=== PATIENT | female | born 1980 | race Caucasian/White ===

== ENCOUNTER 2018-02-21 17:30 | Emergency (ER) | payer OTHER, SELFPAY ==
[~2018-02-21] VITALS: Ht 170.2 cm; Wt 104.3 kg
[2018-02-21 17:48] VITALS: BP 157/96
[2018-02-21 19:11] LABS: ALBUMIN 3.4 g/dL (3.4-5.0); ANION GAP 8 mmol/L (5-15); CALCIUM 9.2 mg/dL (8.5-10.1); CHLORIDE 111 mmol/L (98-107)
[2018-02-21 19:16] LABS: BASOPHILS # (AUTO) 0.04 x10^3/uL (0-0.1); BASOPHILS % (AUTO) 0 % (0-1); EOSINOPHILS # (AUTO) 0.35 x10^3/uL (0-0.4); EOSINOPHILS % (AUTO) 3 % (1-7); LYMPHOCYTES # (AUTO) 3.08 x10^3/uL (1-3.4); LYMPHOCYTES % (AUTO) 24 % (22-44); MD NO; MEAN CORPUSCULAR HEMOGLOBIN 31.2 pg (27.0-34.8); MEAN CORPUSCULAR HGB CONC 33.9 g/dL (32.4-35.8); MEAN PLATELET VOLUME 7.8 fL (7.4-10.4); MONOCYTES # (AUTO) 1.06 x10^3/uL (0.2-0.8); MONOCYTES % (AUTO) 8 % (2-9); NEUTROPHILS % (AUTO) 65 % (42-75); PLATELET COUNT 406 x10^3/uL (130-400); RED BLOOD COUNT 4.46 x10^6/uL (3.82-5.3); RED CELL DISTRIBUTION WIDTH 13.6 % (9.6-15.2)
[2018-02-21 19:29] LABS: ALANINE AMINOTRANSFERASE 29 U/L (12-78); ALKALINE PHOSPHATASE 68 U/L (45-117); BILIRUBIN,TOTAL 0.4 mg/dL (0.2-1.0); CREATININE 0.82 mg/dL (0.55-1.02); TOTAL PROTEIN 7.2 g/dL (6.4-8.2)
[2018-02-21 21:09] LABS: MICROSCOPIC INDICATED
[2018-02-21 21:23] LABS: CULTURE INDICATED? NO
== END 2018-02-21 21:35 | disposition home or self-care (01) ==
LOC: ED 20:18
DX: O20.0 Threatened abortion (principal); Z3A.09 9 weeks gestation of pregnancy
CPT/HCPCS: 36415; 76801; 80053; 81001; 84702; 85025; 86880; 86901; 99285

== ENCOUNTER 2018-09-13 17:08 | Inpatient (IN) | payer OTHER ==
[~2018-09-13] VITALS: Ht 170.2 cm; Wt 116.0 kg
[2018-09-13] MEDS ORDERED: OXYTOCIN 30U/ 0.9% NaCL 500ML 500 ML IV SCH (17:25)
[2018-09-13] MEDS ORDERED: LACTATED RINGERS 1,000 ML IV SCH ×2 (17:25→20:30)
[2018-09-13] MEDS ORDERED: LACTATED RINGERS 1,000 ML IVBOLUS ONE (17:30)
[2018-09-13] MEDS ORDERED: SODIUM CITRATE/CITRIC ACID 30 ML UDC PO ONE (17:30)
[2018-09-13] MEDS ORDERED: METOCLOPRAMIDE 5 MG/ML, 2ML IV ONE (17:30)
[2018-09-13] MEDS ORDERED: CALCIUM CARBONATE 500 MG TAB.CHEW PO PRN (17:30)
[2018-09-13 18:03] LABS: BASOPHILS # (AUTO) 0.02 x10^3/uL (0-0.1); BASOPHILS % (AUTO) 0 % (0-1); EOSINOPHILS # (AUTO) 0.09 x10^3/uL (0-0.4); EOSINOPHILS % (AUTO) 1 % (1-7); LYMPHOCYTES # (AUTO) 2.04 x10^3/uL (1-3.4); LYMPHOCYTES % (AUTO) 13 % (22-44); MD NO; MEAN CORPUSCULAR VOLUME 94.1 fL (80-100); MEAN PLATELET VOLUME 8.4 fL (7.4-10.4); MONOCYTES # (AUTO) 0.85 x10^3/uL (0.2-0.8); MONOCYTES % (AUTO) 6 % (2-9); NEUTROPHILS # (AUTO) 12.27 x10^3/uL (1.8-6.8); NEUTROPHILS % (AUTO) 80 % (42-75); PLATELET COUNT 365 x10^3/uL (130-400); RED BLOOD COUNT 3.95 x10^6/uL (3.82-5.3); RED CELL DISTRIBUTION WIDTH 14.1 % (9.6-15.2)
[2018-09-13] MEDS ORDERED: LABETALOL 100 MG TABLET ONE ×2 (18:28→21:38)
[2018-09-13] MEDS ORDERED: EPHEDRINE 50 MG/ML, 1ML ONE (18:53)
[2018-09-13] MEDS ORDERED: PHENYLEPHRINE 10 MG/ML ONE (18:53)
[2018-09-13] MEDS ORDERED: CEFAZOLIN 1,000 MG ONE (18:53)
[2018-09-13] MEDS ORDERED: ONDANSETRON 2MG/ML, 2ML ONE (18:53)
[2018-09-13] MEDS ORDERED: OXYTOCIN 10 UNITS/ML, 1ML ONE (18:53)
[2018-09-13] MEDS ORDERED: DEXAMETHASONE 4 MG/ML, 1ML ONE (18:53)
[2018-09-13] MEDS ORDERED: KETOROLAC 30 MG/1 ML ONE ×2 (18:53→21:24)
[2018-09-13] MEDS ORDERED: MIDAZOLAM 1 MG/ML, 2ML IV PRN (19:00)
[2018-09-13] MEDS ORDERED: MEPERIDINE/PF 25MG/0.5ML IVPush PRN (19:00)
[2018-09-13] MEDS ORDERED: HYDROcodone/APAP 7.5-325MG/15ML UDC PO PRN (19:00)
[2018-09-13] MEDS ORDERED: OXYcodone 5 MG/5 ML ORAL.SOL UDC PO PRN (19:00)
[2018-09-13] MEDS ORDERED: hydrALAzine 20 MG/ML, 1ML IV PRN (19:00)
[2018-09-13] MEDS ORDERED: ONDANSETRON 2MG/ML, 2ML IVPush PRN (19:00)
[2018-09-13] MEDS ORDERED: HYDROmorphone 1 MG/ML, 1ML IV PRN (19:00)
[2018-09-13] MEDS ORDERED: ALBUTEROL SULFATE 2.5 MG/3 ML NPPB PRN (19:00)
[2018-09-13] MEDS ORDERED: FENTANYL PF 100 MCG/2ML IV PRN (19:00)
[2018-09-13] MEDS ORDERED: LABETALOL 5MG/ML, 20ML IV PRN (19:00)
[2018-09-13] MEDS ORDERED: PROMETHAZINE 25 MG/ML, 1ML IV PRN (19:00)
[2018-09-13] MEDS ORDERED: EPHEDRINE 50 MG/ML, 1ML IVPush PRN (19:00)
[2018-09-13] MEDS ORDERED: SODIUM CITRATE/CITRIC ACID 30 ML UDC ONE (19:03)
[2018-09-13] MEDS ORDERED: METOCLOPRAMIDE 5 MG/ML, 2ML ONE (19:03)
[2018-09-13] MEDS ORDERED: NEWBORN KIT ONE (19:03)
[2018-09-13] MEDS ORDERED: OXYTOCIN 30U/ 0.9% NaCL 500ML 500 ML ONE (19:03)
[2018-09-13] MEDS ORDERED: FENTANYL PF 100 MCG/2ML ONE (19:12)
[2018-09-13] MEDS: LACTATED RINGERS 1,000 ML IV SCH ×2 (20:39→21:17)
[2018-09-13] MEDS ORDERED: ONDANSETRON 2MG/ML, 2ML IV PRN (21:00)
[2018-09-13] MEDS ORDERED: MISOPROSTOL 200 MCG TABLET PR PRN (21:00)
[2018-09-13] MEDS: OXYTOCIN 30U/ 0.9% NaCL 500ML 500 ML IV SCH (21:16)
[2018-09-13] MEDS: KETOROLAC 30 MG/1 ML IV SCH (21:27)
[2018-09-13] MEDS ORDERED: OXYcodone 5 MG/5 ML ORAL.SOL UDC ONE (21:38)
[2018-09-13 21:42] VITALS: BP 137/66
[2018-09-13] MEDS: LABETALOL 100 MG TABLET PO SCH (21:42)
[2018-09-13 22:40] VITALS: BP 139/79
[2018-09-14] MEDS: KETOROLAC 30 MG/1 ML IV SCH ×4 (03:07→21:05)
[2018-09-14 04:30] VITALS: BP 125/63
[2018-09-14] MEDS: LACTATED RINGERS 1,000 ML IV SCH ×5 (04:39→20:39)
[2018-09-14] MEDS: OXYcodone IR 5MG TABLET PO PRN ×3 (04:57→22:44)
[2018-09-14 04:59] LABS: BASOPHILS # (AUTO) 0.06 x10^3/uL (0-0.1); BASOPHILS % (AUTO) 0 % (0-1); EOSINOPHILS # (AUTO) 0.02 x10^3/uL (0-0.4); EOSINOPHILS % (AUTO) 0 % (1-7); LYMPHOCYTES # (AUTO) 2.25 x10^3/uL (1-3.4); LYMPHOCYTES % (AUTO) 14 % (22-44); MD NO; MEAN CORPUSCULAR HEMOGLOBIN 32.5 pg (27.0-34.8); MEAN CORPUSCULAR HGB CONC 34.9 g/dL (32.4-35.8); MEAN PLATELET VOLUME 8.4 fL (7.4-10.4); MONOCYTES # (AUTO) 0.82 x10^3/uL (0.2-0.8); MONOCYTES % (AUTO) 5 % (2-9); NEUTROPHILS # (AUTO) 13.36 x10^3/uL (1.8-6.8); NEUTROPHILS % (AUTO) 81 % (42-75); PLATELET COUNT 302 x10^3/uL (130-400); RED BLOOD COUNT 3.25 x10^6/uL (3.82-5.3)
[2018-09-14] MEDS: OXYTOCIN 30U/ 0.9% NaCL 500ML 500 ML IV SCH ×2 (06:39→16:39)
[2018-09-14 08:00] VITALS: BP 124/73
[2018-09-14] MEDS: OXYcodone/APAP 5/325MG TABLET PO PRN ×2 (08:42→17:39)
[2018-09-14] MEDS: DOCUSATE 100 MG CAPSULE PO PRN ×2 (08:42→19:54)
[2018-09-14] MEDS: PRENATAL VIT/IRON/FA 1 EACH TABLET PO SCH (08:42)
[2018-09-14] MEDS: LABETALOL 100 MG TABLET PO SCH ×2 (08:43→17:39)
[2018-09-14] MEDS ORDERED: CALCIUM CARBONATE 500 MG TAB.CHEW ONE (11:51)
[2018-09-14 12:00] VITALS: BP 122/68
[2018-09-14 16:00] VITALS: BP 135/79
[2018-09-14 19:30] VITALS: BP 118/65
[2018-09-14] MEDS ORDERED: DIPH,PERTUSS(ACELL),TET VAC/PF NC IM-VACC ONE (20:00)
[2018-09-15] MEDS: OXYTOCIN 30U/ 0.9% NaCL 500ML 500 ML IV SCH ×4 (02:39→23:44)
[2018-09-15] MEDS: LACTATED RINGERS 1,000 ML IV SCH ×8 (02:39→23:43)
[2018-09-15] MEDS: KETOROLAC 30 MG/1 ML IV SCH ×3 (02:49→14:58)
[2018-09-15 02:55] VITALS: BP 135/71
[2018-09-15] MEDS: OXYcodone IR 5MG TABLET PO PRN ×4 (06:03→20:07)
[2018-09-15 07:35] VITALS: BP 143/83
[2018-09-15] MEDS: PRENATAL VIT/IRON/FA 1 EACH TABLET PO SCH (08:38)
[2018-09-15] MEDS: ACETAMINOPHEN 325 MG TABLET PO PRN ×2 (08:38→14:58)
[2018-09-15] MEDS: DOCUSATE 100 MG CAPSULE PO PRN ×2 (08:38→20:07)
[2018-09-15] MEDS: LABETALOL 100 MG TABLET PO SCH ×2 (08:41→17:46)
[2018-09-15 17:48] VITALS: BP 111/66
[2018-09-15 19:50] VITALS: BP 130/85
[2018-09-16 00:10] VITALS: BP 145/72
[2018-09-16] MEDS: PRENATAL VIT/IRON/FA 1 EACH TABLET PO SCH (07:44)
[2018-09-16] MEDS: DOCUSATE 100 MG CAPSULE PO PRN ×2 (07:44→21:50)
[2018-09-16] MEDS: LABETALOL 100 MG TABLET PO SCH ×2 (07:44→18:31)
[2018-09-16] MEDS: OXYcodone IR 5MG TABLET PO PRN ×3 (07:44→21:50)
[2018-09-16 07:45] VITALS: BP 147/81
[2018-09-16] MEDS: IBUPROFEN 600 MG TABLET PO PRN ×3 (07:48→21:50)
[2018-09-16] MEDS: LACTATED RINGERS 1,000 ML IV SCH ×2 (18:39→19:11)
[2018-09-16] MEDS: OXYTOCIN 30U/ 0.9% NaCL 500ML 500 ML IV SCH (19:11)
[2018-09-16 21:30] VITALS: BP 154/71
[2018-09-17 04:00] VITALS: BP 146/73
[2018-09-17] MEDS: IBUPROFEN 600 MG TABLET PO PRN (04:07)
[2018-09-17] MEDS: OXYcodone IR 5MG TABLET PO PRN (04:07)
[2018-09-17] MEDS: OXYTOCIN 30U/ 0.9% NaCL 500ML 500 ML IV SCH (04:39)
[2018-09-17] MEDS: LACTATED RINGERS 1,000 ML IV SCH ×2 (04:39)
[2018-09-17 07:35] VITALS: BP 148/89
[2018-09-17] MEDS: DOCUSATE 100 MG CAPSULE PO PRN (08:07)
[2018-09-17] MEDS: PRENATAL VIT/IRON/FA 1 EACH TABLET PO SCH (08:07)
[2018-09-17] MEDS: LABETALOL 100 MG TABLET PO SCH (08:07)
[2018-09-17] MEDS ORDERED: OXYC-302 PO (10:11)
[2018-09-17] MEDS ORDERED: IBUP-1222 PO (10:11)
== END 2018-09-17 13:05 | disposition home or self-care (01) | DRG 788 ==
LOC: LDOP 17:08 → LDIP 17:25 → 2NW 22:34
PROVIDERS: ADMIT Obstetrics & Gynecology; ATTEND Obstetrics & Gynecology
PROC: 10D00Z1 Extraction of Products of Conception, Low, Open Approach (ICD-10-PCS; principal; 2018-09-13)
DX: O16.4 Unspecified maternal hypertension, complicating childbirth (principal); O24.425 Gestational diabetes mellitus in childbirth, controlled by oral hypoglycemic drugs; Z37.0 Single live birth; O32.1XX0 Maternal care for breech presentation, not applicable or unspecified; E28.2 Polycystic ovarian syndrome; Z79.84 Long term (current) use of oral hypoglycemic drugs; Z3A.38 38 weeks gestation of pregnancy
CPT/HCPCS: 36415; 82803; 82962; 85025; 86850; 86900; 90715; G0378; J0690; J1100; J1885; J2405; J3010; J2370; J2590; J2765; J7120